=== PATIENT | male | born 1975 | race Caucasian/White ===

== ENCOUNTER 2016-09-24 05:16 | Emergency (ER) | payer OTHER ==
--- NOTE | 2016-09-24 05:50 | DIAGNOSTIC IMAGING REPORT ---
PROCEDURE: XR ABDOMEN 1 VIEW UPRIGHT INDICATION: ABDOMINAL PAIN TECHNIQUE: AP upright view. COMPARISON: None. FINDINGS: There is moderate fluid distention of the stomach with relative paucity of small bowel gas. No evidence of free air. tissues Soft tissues and osseous structures are normal. IMPRESSION: 1. Moderate fluid distention of the stomach with relative paucity of small bowel gas (suggests fluid in the small bowel). While this may be normal, gastroenteritis or occult small bowel obstruction.
--- NOTE | 2016-09-24 08:02 | DIAGNOSTIC IMAGING REPORT ---
PROCEDURE: CT ABD/PELVIS WITH CONTRAST INDICATION: ABDOMINAL PAIN TECHNIQUE: 125 ml of Isovue 300 were injected intravenously and axial images were obtained of the entire abdomen and pelvis with sagittal and coronal reformations. COMPARISON: Comparison made abdominal radiograph earlier in the day. FINDINGS: ABDOMEN: There is a 2.9 cm low density area in the right lobe of the liver with a 1.2 cm low density area in the left lobe of the liver. Liver is otherwise normal. Bowel pattern is within normal limits and there is no evidence of obstruction. Appendix is normal. Mild distention of the stomach. Gallbladder, spleen, pancreas, kidneys, and aorta are normal. PELVIS: Pelvic structures are normal. No evidence of free fluid. IMPRESSION: 1. There are low density areas in the liver (right lobe 2.9 cm, left lobe 1.2 cm) which may represent cysts or hemangiomas. Ultrasound is recommended to further evaluate. 2. Otherwise negative CT abdomen and pelvis. 3. Findings discussed with Dr. Sanjay Limon. All CT scans at this facility use dose modulation, iterative reconstruction, and/or weight-based dosing when appropriate to reduce radiation dose to as low as reasonably achievable.
--- NOTE | 2016-09-24 08:06 | ED ORDER SUMMARY ---
..... Patient: YISEL GARCÍA OrderSheet [facility] VisitID: [id number] [address] [place] [place] [address] 41y, M Registration Date/Time: 09/24/2016 ORDER SHEET Weight: 74.8 kg Allergies: Codeine, Oxycodone GENERAL ORDERS: CBC w Diff Urgent (05:35 09/24/2016 Jamar WILLSON) (Ack 5:38 AMcQuoid ER Tech1) (5:44 TBowen R.N.) CMP Urgent (05:35 09/24/2016 Jamar WILLSON) (Ack 5:38 AMcQuoid ER Tech1) (5:44 TBowen R.N.) Amylase Urgent (05:09/24/2016 Jamar WILLSON) (Ack 5:38 AMcQuoid ER Tech1) (5:44 TBowen R.N.) Abdomen 1V Upright Urgent (05:09/24/2016 Jamar WILLSON) (Ack 5:38 AMcQuoid ER Tech1) (5:45 RFay) UA-Culture if indicated Urgent (06:49 09/24/2016 Jamar WILLSON) (6:50 TBowen R.N.) Urine Drug Screen Urgent (06:49 09/24/2016 Jamar WILLSON) (6:50 TBowen R.N.) CT Abd/Pel w Cont (No) (N/A) Urgent (06:53 09/24/2016 Jamar WILLSON) (Ack 6:57 AMcQuoid ER Tech1) (7:31 TBergley) MEDICATION ORDERS: IV FLUIDS: IV NS : initial bolus 500 mL (1000 mL/hr), then 250 mL/hr for 3h (NOW); Urgent (05:35 09/24/2016 Jamar WILLSON) (5:45 TBowen R.N.) Zofran IV 4 mg (NOW) (05:35 09/24/2016 Jamar WILLSON) (5:44 TBowen R.N.) Demerol IV 12.5 mg (NOW) (06:53 09/24/2016 Jamar WILLSON) (Ack 6:55 RMarsden R.N.) (7:15 Richy R.Juan) ORDER SHEET NOTES: [Electronically signed by Macey Pearl R.N. (13:28 09/24/2016)] [Electronically signed by Sanjay Limon MD (22:41 09/27/2016)] [Electronically locked/signed by Macey Pearl R.N. (13:28 09/24/2016)]
--- NOTE | 2016-09-24 08:06 | ED NURSING NOTES ---
Clinical Report - Nurses [facility] [address] [place] [address] 09/24/2016 5:19 Patient: YISEL GARCÍA TRIAGE Triage time 05:27. Acuity: LEVEL 3. Chief Complaint: ABDOMINAL PAIN, NAUSEA, VOMITING and DIARRHEA. --05:30 TonyaB, R.N. 05:27 09/24/16. BP: 138/90. HR: 68. RR: 16. O2 saturation: 99%. Temp: 98.4 F. Pain level now: 12/14. --05:30 TonyaB, R.N. Weight: 74.8 kg. Height/Length: 68 inches. BMI: 25.1. --05:28 TonyaB, R.N. Medications None. --05:28 TonyaB, R.N. Allergies Codeine. --05:28 TonyaB, R.N. Oxycodone. --05:28 TonyaB, R.N. History Arrived by private vehicle. Historian: patient. This started yesterday. ( pt complains of pain this am). 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 PAST MEDICAL HX: Immunizations: up-to-date. SOCIAL HX: Light tobacco smoker- less than 1/2 a pack per day. Regular alcohol use; consumes beer daily. History of drug use: marijuana. Recently used drugs yesterday. No recent travel. No infectious disease exposure. No known contact with a sick individual. SELF HARM ASSESSMENT: A self harm assessment was performed. The patient answered "no" to the question "Have you recently felt down, depressed, or hopeless?", "Have you noticed less interest or pleasure in doing things?", "Do you have thoughts of harming or killing yourself?", "Are you here because you tried to hurt yourself?", "Have you ever tried to hurt yourself before today?", "Have you recently had thoughts about harming or killing others?" and "Do you have any dangerous items in your possession?". FALL RISK ASSESSMENT: Fall risk assessment completed. No fall risk identified. NUTRITIONAL RISK ASSESSMENT: The nutritional risk assessment revealed no deficiencies. FUNCTIONAL ASSESSMENT: Functional assessment: no impairments noted. LEARNING NEEDS ASSESSMENT: The learning needs assessment revealed no barriers. ABUSE ASSESSMENT: Abuse assessment: The patient was asked "Do you feel safe in your home?". SKIN INTEGRITY ASSESSMENT: Skin integrity risk assessment completed. No skin integrity risk identified. --05:30 Sandra Dnucan PROBLEMS: no known problems. ADDITIONAL SURGERIES: no known surgeries. Interventions ID band on patient. To treatment room. --05:30 Sandra Duncan PHYSICAL ASSESSMENT Ambulatory to room. GENERAL / NEURO / PSYCH: Alert. Oriented X 4. Appears in no acute distress. HEENT: Mucous membranes are pink. RESPIRATORY: Respirations not labored. Breath sounds within normal limits. CVS: Normal sinus rhythm noted. Capillary refill less than 2 seconds. GI / : Abdomen soft and nontender. Bowel sounds within normal limits. SKIN: Skin is warm and dry. --05:31 Sandra Duncan NURSING PROGRESS NOTES Patient gowned. Patient identifiers checked. Call light placed in reach. Side rails up x 1. Bed placed in lowest position. Brakes of bed on. --05:31 Sandra Duncan 05:44 09/24/2016 Site #1 started via IV in the left forearm with an 20g angiocath, with aseptic technique and good blood return; one attempt. --05:44 Sandra Duncan 05:44 09/24/2016 Zofran (Ondansetron HCl) IVP 4 mg given over 1 minute(s) via site #1. Allergies verified and confirmed 5 rights. IV patency established. IV site checked: no pain, redness, or swelling. IV flushed thoroughly pre- and post-medication administration. IVP given by RN. --05:44 Sandra Duncan 05:45 09/24/2016 Started bag #1 1000 mL IV Fluids IV NS (Saline); at 1000 mL/hr over 30 minute(s) via site #1. Allergies verified and confirmed 5 rights. IV patency established. IV site checked: no pain, redness, or swelling. IV flushed thoroughly pre- and post-medication administration. --05:45 Sandra Duncan Patient ID band checked for patient name and birthdate: patient confirmed. Blood samples drawn from the right antecubital space with Vacutainer and 18g butterfly by nurse ; labeled in presence of the patient and sent to lab: elton miller. --05:45 Sandra Duncan Reassessment after medication administered. He is sleeping. --06:23 Sandra Duncan Care transferred and report received (from MINERVA Lao). --07:09 Grace Kruger R.N. 07:15 09/24/2016 Demerol (Meperidine HCl) IVP 12.5 mg given over 5 minute(s) via site #1. Allergies verified and confirmed 5 rights. IV patency established. IV site checked: no pain, redness, or swelling. IV flushed thoroughly pre- and post-medication administration. IVP given by RN. --07:15 Peyton Welch R.N. DISPOSITION / DISCHARGE 08:25 09/24/16. BP: 137/85. HR: 61. RR: 12. O2 saturation: 100% on room air. Temp: 98.2 F (oral). Pain level now: 09/13. --08:26 Macey Pearl R.N. Departure time: 08:Sep 24 2016. Condition at departure: improved and stable. No learning barriers present. Discharge instructions provided and reviewed with the patient. Reviewed medication(s) side effects, precautions and dosing information. Prescription(s) given to the patient. Patient verbalized understanding. Written instructions provided in [place]. The patient was discharged by the physician. He was discharged home and accompanied by train inspector. He left the Emergency Department ambulatory and via private vehicle. E Commerce Director driving. --08:26 Macey Pearl R.N. 08:05 09/24/2016 IV Fluids IV NS Discontinued: bag #1 infused upon discharge. Total amount infused: 1000 mL. IV patency established. IV site checked: no pain, redness, or swelling. IV flushed thoroughly. --13:28 Macey Pearl R.N. 08:26 09/24/2016 Site #1 removed upon discharge. Catheter intact. Manual pressure and bandage applied. --08:26 Macey Pearl R.N. Locked/Released at 09/24/2016 13:28 by Macey Pearl R.N.
--- NOTE | 2016-09-24 08:06 | ED CLINICAL REPORT ---
Clinical Report - Physicians/Mid Levels [facility] [address] [place] [address] 09/24/2016 5:19 Patient: YISEL GARCÍA Time Seen: 05:Sep 24 2016. Arrived- By private vehicle. Historian- patient. HISTORY OF PRESENT ILLNESS Chief Complaint: ABDOMINAL PAIN and VOMITING, DIARRHEA and NAUSEA. At its maximum, severity described as moderate. When seen in the E.D., severity described as moderate. Modifying factors- worsened by food. Not relieved by anything. It is described as located in the upper abdomen. This started yesterday Mostly nausea and small amounts of diarrhea every 2 hours. Came on after eating ham last night. and is still present. The patient has had nausea and loss of appetite. No vomiting. He has had moderate diarrhea (12 times per day.Small amounts.). This has occurred several times. It has been watery and contained mucous and has been associated with cramps. Similar symptoms previously: None. Recent medical care: Not recently seen/assessed. REVIEW OF SYSTEMS No constipation, black stools, hematemesis, difficulty with urination or pain with urination. No urinary frequency, fever, sore throat, chest pain or difficulty breathing. No cough, joint pain, skin rash, chills or back pain. All systems otherwise negative, except as recorded above. PAST HISTORY See nurses notes. Problems: no known problems. Additional Surgeries: no known surgeries. Medications: None. Allergies: Codeine. Oxycodone. SOCIAL HISTORY Light tobacco smoker (cigarette)- less than 1/2 a pack per day. Occasional alcohol use. History of drug use: marijuana. ADDITIONAL NOTES The nursing notes have been reviewed. PHYSICAL EXAM Vital Signs: 09/24/2016 05:27 BP: 138/90. HR: 68. RR: 16. O2 saturation: 99%. Temp: 98.4 F. Pain level now: 8/10. Appearance: Alert. Eyes: Eyes normal inspection. ENT: Pharynx normal. Neck: Normal inspection. CVS: Normal heart rate and rhythm. Heart sounds normal. Pulses normal. Respiratory: No respiratory distress. Breath sounds normal. Chest nontender. Abdomen: Soft and nontender. Back: Normal inspection. Skin: Skin warm. Normal skin color. No rash. Extremities: Extremities exhibit normal ROM. No lower extremity edema. Neuro: Oriented X 3. No motor deficit. No sensory deficit. LABS, X-RAYS, AND EKG Abdominal CT: no luminal diameter. Consistent with gastroenteritis. Abdominal CT performed with IV contrast. The study was independently viewed by me, interpreted by the radiologist and discussed with the radiologist. Laboratory Tests: UA-Culture if indicated: (YRIS: 09/24/2016 06:45) ( PagRcvd 09/24/2016 07:16) Final results Test Result Flag Units (Reference) URINE COLOR YELLOW URINE APPEARANCE SL CLOUDY URINE GLUCOSE NEGATIVE (NEGATIVE) URINE BILIRUBIN NEGATIVE (NEGATIVE) URINE KETONE 2+ (NEGATIVE) URINE SPECIFIC GRAVITY >= 1.030 (1.010-1.030) URINE PH 6.0 (5.0-8.0) URINE PROTEIN TRACE (NEGATIVE) URINE UROBILINOGEN 0.2 EU/dL (0.2-1.0) URINE NITRITE NEGATIVE (NEGATIVE) URINE BLOOD NEGATIVE (NEGATIVE) URINE LEUK ESTERASE NEGATIVE (NEGATIVE) URINE RBC 0-1 rbc/hpf (0-1) URINE WBC NONE SEEN wbc/hpf (0-1) URINE EPITHELIAL CELLS 0-1 EPI/hpf (0-5) URINE BACTERIA NONE SEEN (NONE SEEN) URINE COMMENT CULT NOT INDICATED URINE CULTURES ARE SET-UP BASED ON THE FOLLOWING CRITERIA:POSITIVE NITRITEPOSITIVE LEUKOCYTE ESTERASEGREATER THAN 10 WHITE BLOOD CELLSMODERATE (2+) OR GREATER BACTERIA CBC w Diff: (YRIS: 09/24/2016 05:40) ( Mscvd 09/24/2016 05:51) Final results Test Result Flag Units (Reference) WHITE BLOOD COUNT 9.4 K/uL (4.5-11.5) RED BLOOD COUNT 4.86 M/uL (4.50-5.90) HEMOGLOBIN 14.9 gm/dL (13.5-17.5) HEMATOCRIT 44.4 % (41.0-53.0) MEAN CELL VOLUME 91 fL (80-100) MEAN CORPUSCULAR HGB 31 pg (26-34) MEAN CORPUSCULAR HGB CONC 34 g/dL (31-37) RED CELL DISTRIBUTION WIDTH 13.6 % (11.6-14.8) PLATELET COUNT 137 L K/uL (150-400) NEUTROPHIL % 75.4 H % (50-75) LYMPH % 17.8 L % (25-40) MONO % 5.3 % (3-14) EOSINOPHIL % 1.2 % (0-4) BASOPHIL % 0.3 % (0-2) Urine Drug Screen: (YRIS: 09/24/2016 06:45) ( MsgRcvd 09/24/2016 07:18) Final results Test Result Flag Units (Reference) AMPHETAMINE/METHAMPHETAMINE NEGATIVE (NEGATIVE) BARBITURATE NEGATIVE (NEGATIVE) BENZODIAZEPINE NEGATIVE (NEGATIVE) CANNABINOID POSITIVE H (NEGATIVE) COCAINE NEGATIVE (NEGATIVE) ECSTASY NEGATIVE (NEGATIVE) METHADONE NEGATIVE (NEGATIVE) OPIATE NEGATIVE (NEGATIVE) The urine drug screen is a qualitative screening test fordrug overdose and abuse. All screen results should beconsidered as presumptive.Drugs screened for are as follows:BenzodiazepinesCocaineAmphetamines/MetamphetaminesTHC (Tetrahydrocannabinol)OpiatesBarbituratesEcstasyMethadonePositive results are unconfirmed. For confirmation, notifythe lab for the specimen to be sent to the reference lab.All confirmations must be performed by a differentmethodology.The ingestion of natural herbal and plant productscontaining Ephedra/Ephedra metabolites can produce in urineone or more substances capable of cross reacting withamphetamine/methamphetamine immunoassays. These testsprovide a preliminary result only. A more specificalternative chemical method must be used to obtain aconfirmed analytical result. CMP: (YRIS: 09/24/2016 05:40) ( MsgRcvd 09/24/2016 06:01) Final results Test Result Flag Units (Reference) GLUCOSE 127 H mg/dL (70-110) BUN 15 mg/dL (7-18) CREATININE 0.9 mg/dL (0.6-1.3) Estimated GFR >60 mL/min Estimated GFR- >60 mL/min Note: Persistent reduction over 3 months in eGFR<60 mL/min/1.73 m2 defines CKD. Patients with eGFR values>=60 mL/min/1.73 m2 may also have CKD if evidence ofpersistent proteinuria. Additional information may be foundat www.kidney.org. SODIUM 135 L mmol/L (136-145) POTASSIUM 4.2 mmol/L (3.5-5.1) CHLORIDE 100 mmol/L (98-107) CARBON DIOXIDE 27 mmol/L (21-32) CALCIUM 8.5 mg/dL (8.5-10.1) TOTAL PROTEIN 7.0 g/dL (6.4-8.2) ALBUMIN 3.8 g/dL (3.3-5.0) BILIRUBIN, TOTAL 0.7 mg/dL (0.0-1.0) ALKALINE PHOSPHATASE 70 U/L (46-116) AST (SGOT) 18 U/L (15-37) ALT (SGPT) 37 U/L (12-78) AMYLASE 48 U/L (25-115) . PROGRESS AND PROCEDURES Course of Care: IV NS Demerol 12.5 mg Iv Zofran 4 mg IV Patient is stable. Symptoms better. Patient/family counseled. Disposition: Discharged. Condition: stable. CLINICAL IMPRESSION Acute periumbilical abdominal pain of unknown cause. INSTRUCTIONS Take clear liquids only (frequent sips) for the next 12 hours until better. Advance diet as tolerated. Warnings: Further evaluation is necessary. SEDATIVE MEDICATION: You were given sedative medication during your visit. Do not drive or operate dangerous machinery. GENERAL WARNINGS: Return or contact your physician immediately if your condition worsens or changes unexpectedly, if not improving as expected, or if other problems arise. Prescription Medications: Zofran (orally disintegrating tablets) 4 mg: take 1 orally every 6 hours as needed for nausea. Dispense ten (10). No refill. Substitution is permissible. Ultram 50 mg: take 1-2 orally every 6 hours as needed for pain. Dispense fifteen (15). No refills. Follow-up: Follow up with your doctor in two days if not better. Understanding of the discharge instructions verbalized by patient. (Electronically signed by Sanjay Limon MD 09/27/2016 22:41)
--- NOTE | 2016-09-24 08:06 | ED ORDER SUMMARY ---
..... Patient: YISEL GARCÍA OrderSheet [facility] VisitID: [id number] [address] [place] [address] 41y, M Registration Date/Time: 09/24/2016 ORDER SHEET Weight: 74.8 kg Allergies: Codeine, Oxycodone GENERAL ORDERS: CBC w Diff Urgent (05:35 09/24/2016 Jamar WILLSON) (Ack 5:38 AMcQuoid ER Tech1) (5:44 TBowen R.N.) CMP Urgent (05:35 09/24/2016 Jamar WILLSON) (Ack 5:38 AMcQuoid ER Tech1) (5:44 TBowen R.N.) Amylase Urgent (05:09/24/2016 Jamar WILLSON) (Ack 5:38 AMcQuoid ER Tech1) (5:44 TBowen R.N.) Abdomen 1V Upright Urgent (05:09/24/2016 Jamar WILLSON) (Ack 5:38 AMcQuoid ER Tech1) (5:45 RFay) UA-Culture if indicated Urgent (06:49 09/24/2016 Jamar WILLSON) (6:50 TBowen R.N.) Urine Drug Screen Urgent (06:49 09/24/2016 Jamar WILLSON) (6:50 TBowen R.N.) CT Abd/Pel w Cont (No) (N/A) Urgent (06:53 09/24/2016 Jamar WILLSON) (Ack 6:57 AMcQuoid ER Tech1) (7:31 TBergley) MEDICATION ORDERS: IV FLUIDS: IV NS : initial bolus 500 mL (1000 mL/hr), then 250 mL/hr for 3h (NOW); Urgent (05:35 09/24/2016 Jamar WILLSON) (5:45 TBowen R.N.) Zofran IV 4 mg (NOW) (05:35 09/24/2016 Jamar WILLSON) (5:44 TBowen R.N.) Demerol IV 12.5 mg (NOW) (06:53 09/24/2016 Jamar WILLSON) (Ack 6:55 RMarsden R.N.) (7:15 Richy R.Juan) ORDER SHEET NOTES: [Electronically signed by Macey Pearl R.N. (13:28 09/24/2016)] [Electronically signed by Sanjay Limon MD (22:41 09/27/2016)] [Electronically locked/signed by Macey Pearl R.N. (13:28 09/24/2016)]
--- NOTE | 2016-09-24 08:06 | ED NURSING NOTES ---
Clinical Report - Nurses [facility] [address] [place] [address] 09/24/2016 5:19 Patient: YISEL GARCÍA TRIAGE Triage time 05:27. Acuity: LEVEL 3. Chief Complaint: ABDOMINAL PAIN, NAUSEA, VOMITING and DIARRHEA. --05:30 TonyaB, R.N. 05:27 09/24/16. BP: 138/90. HR: 68. RR: 16. O2 saturation: 99%. Temp: 98.4 F. Pain level now: 12/14. --05:30 TonyaB, R.N. Weight: 74.8 kg. Height/Length: 68 inches. BMI: 25.1. --05:28 TonyaB, R.N. Medications None. --05:28 TonyaB, R.N. Allergies Codeine. --05:28 TonyaB, R.N. Oxycodone. --05:28 TonyaB, R.N. History Arrived by private vehicle. Historian: patient. This started yesterday. ( pt complains of pain this am). 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 PAST MEDICAL HX: Immunizations: up-to-date. SOCIAL HX: Light tobacco smoker- less than 1/2 a pack per day. Regular alcohol use; consumes beer daily. History of drug use: marijuana. Recently used drugs yesterday. No recent travel. No infectious disease exposure. No known contact with a sick individual. SELF HARM ASSESSMENT: A self harm assessment was performed. The patient answered "no" to the question "Have you recently felt down, depressed, or hopeless?", "Have you noticed less interest or pleasure in doing things?", "Do you have thoughts of harming or killing yourself?", "Are you here because you tried to hurt yourself?", "Have you ever tried to hurt yourself before today?", "Have you recently had thoughts about harming or killing others?" and "Do you have any dangerous items in your possession?". FALL RISK ASSESSMENT: Fall risk assessment completed. No fall risk identified. NUTRITIONAL RISK ASSESSMENT: The nutritional risk assessment revealed no deficiencies. FUNCTIONAL ASSESSMENT: Functional assessment: no impairments noted. LEARNING NEEDS ASSESSMENT: The learning needs assessment revealed no barriers. ABUSE ASSESSMENT: Abuse assessment: The patient was asked "Do you feel safe in your home?". SKIN INTEGRITY ASSESSMENT: Skin integrity risk assessment completed. No skin integrity risk identified. --05:30 Sandra Duncan PROBLEMS: no known problems. ADDITIONAL SURGERIES: no known surgeries. Interventions ID band on patient. To treatment room. --05:30 Sandra Duncan PHYSICAL ASSESSMENT Ambulatory to room. GENERAL / NEURO / PSYCH: Alert. Oriented X 4. Appears in no acute distress. HEENT: Mucous membranes are pink. RESPIRATORY: Respirations not labored. Breath sounds within normal limits. CVS: Normal sinus rhythm noted. Capillary refill less than 2 seconds. GI / : Abdomen soft and nontender. Bowel sounds within normal limits. SKIN: Skin is warm and dry. --05:31 Sandra Duncan NURSING PROGRESS NOTES Patient gowned. Patient identifiers checked. Call light placed in reach. Side rails up x 1. Bed placed in lowest position. Brakes of bed on. --05:31 Sandra Duncan 05:44 09/24/2016 Site #1 started via IV in the left forearm with an 20g angiocath, with aseptic technique and good blood return; one attempt. --05:44 Sandra Duncan 05:44 09/24/2016 Zofran (Ondansetron HCl) IVP 4 mg given over 1 minute(s) via site #1. Allergies verified and confirmed 5 rights. IV patency established. IV site checked: no pain, redness, or swelling. IV flushed thoroughly pre- and post-medication administration. IVP given by RN. --05:44 Sandra Duncan 05:45 09/24/2016 Started bag #1 1000 mL IV Fluids IV NS (Saline); at 1000 mL/hr over 30 minute(s) via site #1. Allergies verified and confirmed 5 rights. IV patency established. IV site checked: no pain, redness, or swelling. IV flushed thoroughly pre- and post-medication administration. --05:45 Sandra Duncan Patient ID band checked for patient name and birthdate: patient confirmed. Blood samples drawn from the right antecubital space with Vacutainer and 18g butterfly by nurse ; labeled in presence of the patient and sent to lab: elton miller. --05:45 Sandra Duncan Reassessment after medication administered. He is sleeping. --06:23 Sandra Duncan Care transferred and report received (from MINERVA Lao). --07:09 Grace Kruger R.N. 07:15 09/24/2016 Demerol (Meperidine HCl) IVP 12.5 mg given over 5 minute(s) via site #1. Allergies verified and confirmed 5 rights. IV patency established. IV site checked: no pain, redness, or swelling. IV flushed thoroughly pre- and post-medication administration. IVP given by RN. --07:15 Peyton Welch R.N. DISPOSITION / DISCHARGE 08:25 09/24/16. BP: 137/85. HR: 61. RR: 12. O2 saturation: 100% on room air. Temp: 98.2 F (oral). Pain level now: 09/13. --08:26 Macey Pearl R.N. Departure time: 08:Sep 24 2016. Condition at departure: improved and stable. No learning barriers present. Discharge instructions provided and reviewed with the patient. Reviewed medication(s) side effects, precautions and dosing information. Prescription(s) given to the patient. Patient verbalized understanding. Written instructions provided in [place]. The patient was discharged by the physician. He was discharged home and accompanied by solid waste facility operator. He left the Emergency Department ambulatory and via private vehicle. Experimental Machining Lab Manager driving. --08:26 Macey Pearl R.N. 08:05 09/24/2016 IV Fluids IV NS Discontinued: bag #1 infused upon discharge. Total amount infused: 1000 mL. IV patency established. IV site checked: no pain, redness, or swelling. IV flushed thoroughly. --13:28 Macey Pearl R.N. 08:26 09/24/2016 Site #1 removed upon discharge. Catheter intact. Manual pressure and bandage applied. --08:26 Macey Pearl R.N. Locked/Released at 09/24/2016 13:28 by Macey Pearl R.N.
--- NOTE | 2016-09-27 22:41 | ED MAR SUMMARY ---
..... Medication Administration Record [facility] [address] [place] [address] Patient: YISEL GARCÍA Visit ID: [id number] 41y, M Weight: 74.8 kg Height/Length: 68 in BMI: 25.1 ALLERGIES: Oxycodone, Codeine Given 05:44 09/24/2016 Dakota RJavan Medication Administered: ZOFRAN [IVP] (ONDANSETRON HCL), Dose: 4 mg IVP over 1 minute(s), Site: #1 left forearm. Medication Ordered: Zofran IV 4 mg (NOW). Start 05:45 09/24/2016 Dakota RJavan, Stop 08:05 09/24/2016 Macey Pearl R.N. Medication Administered: IV NS (SALINE), Dose: IV Fluids over 30 minute(s), Rate: 1000 mL/hr, Dispensed: 1000 mL bag, Site: #1 left forearm. Medication Ordered: IV NS : initial bolus 500 mL (1000 mL/hr), then 250 mL/hr for 3h (NOW); Urgent. Given 07:15 09/24/2016 Peyton Welch RJavan Medication Administered: DEMEROL [IVP] (MEPERIDINE HCL), Dose: 12.5 mg IVP over 5 minute(s), Site: #1 left forearm. Medication Ordered: Demerol IV 12.5 mg (NOW).
--- NOTE | 2016-09-27 22:41 | ED MED RECONCILIATION SUMMARY ---
Patient: YISEL GARCÍA Medication Reconciliation Report [facility] VisitID: [id number] [address] [place] [address] 41y, M Registration Date/Time: 09/24/2016 Weight: 74.8 kg Height/Length: 68 in. BMI: 25.1 ALLERGIES: Codeine, Oxycodone The patient's Home Medications are listed below: NONE. The source(s) of the original Home Medication information: Not obtained. The following Medications were given to the patient in the Emergency Department: Zofran [IVP] IVP 4 mg, administered: 09/24/2016 5:44:00 AM IV NS IV Fluids bolus 0, then 1000 mL/hr, administered: 09/24/2016 5:45:00 AM Demerol [IVP] IVP 12.5 mg, administered: 09/24/2016 7:15:00 AM The following Medications were prescribed to the patient: Zofran (orally disintegrating tablets) 4 mg: take 1 orally every 6 hours as needed for nausea. Dispense ten (10). No refill. Substitution is permissible. -- Sanjay Limon MD Ultram 50 mg: take 1-2 orally every 6 hours as needed for pain. Dispense fifteen (15). No refills. -- Sanjay Limon MD
--- NOTE | 2016-09-27 22:41 | ED MAR SUMMARY ---
..... Medication Administration Record [facility] [address] [place] [address] Patient: YISEL GARCÍA Visit ID: [id number] 41y, M Weight: 74.8 kg Height/Length: 68 in BMI: 25.1 ALLERGIES: Oxycodone, Codeine Given 05:44 09/24/2016 Dakota RJavan Medication Administered: ZOFRAN [IVP] (ONDANSETRON HCL), Dose: 4 mg IVP over 1 minute(s), Site: #1 left forearm. Medication Ordered: Zofran IV 4 mg (NOW). Start 05:45 09/24/2016 Dakota RJavan, Stop 08:05 09/24/2016 Macey Pearl R.N. Medication Administered: IV NS (SALINE), Dose: IV Fluids over 30 minute(s), Rate: 1000 mL/hr, Dispensed: 1000 mL bag, Site: #1 left forearm. Medication Ordered: IV NS : initial bolus 500 mL (1000 mL/hr), then 250 mL/hr for 3h (NOW); Urgent. Given 07:15 09/24/2016 Peyton Welch RJavan Medication Administered: DEMEROL [IVP] (MEPERIDINE HCL), Dose: 12.5 mg IVP over 5 minute(s), Site: #1 left forearm. Medication Ordered: Demerol IV 12.5 mg (NOW).
--- NOTE | 2016-09-27 22:41 | ED MED RECONCILIATION SUMMARY ---
Patient: YISEL GARCÍA Medication Reconciliation Report [facility] VisitID: [id number] [address] [place] [address] 41y, M Registration Date/Time: 09/24/2016 Weight: 74.8 kg Height/Length: 68 in. BMI: 25.1 ALLERGIES: Codeine, Oxycodone The patient's Home Medications are listed below: NONE. The source(s) of the original Home Medication information: Not obtained. The following Medications were given to the patient in the Emergency Department: Zofran [IVP] IVP 4 mg, administered: 09/24/2016 5:44:00 AM IV NS IV Fluids bolus 0, then 1000 mL/hr, administered: 09/24/2016 5:45:00 AM Demerol [IVP] IVP 12.5 mg, administered: 09/24/2016 7:15:00 AM The following Medications were prescribed to the patient: Zofran (orally disintegrating tablets) 4 mg: take 1 orally every 6 hours as needed for nausea. Dispense ten (10). No refill. Substitution is permissible. -- Sanjay Limon MD Ultram 50 mg: take 1-2 orally every 6 hours as needed for pain. Dispense fifteen (15). No refills. -- Sanjay Limon MD
--- NOTE | 2016-09-27 22:41 | ED DISCHARGE INSTRUCTIONS ---
Patient: YISEL GARCÍA General Instructions [facility] VisitID: [id number] [place] [address] 41y, M Registration Date/Time: 09/24/2016 Acute periumbilical abdominal pain of unknown cause. INSTRUCTIONS Take clear liquids only (frequent sips) for the next 12 hours until better. Advance diet as tolerated. Warnings: Further evaluation is necessary. SEDATIVE MEDICATION: You were given sedative medication during your visit. Do not drive or operate dangerous machinery. GENERAL WARNINGS: Return or contact your physician immediately if your condition worsens or changes unexpectedly, if not improving as expected, or if other problems arise. Prescription Medications: Zofran (orally disintegrating tablets) 4 mg: take 1 orally every 6 hours as needed for nausea. Dispense ten (10). No refill. Substitution is permissible. Ultram 50 mg: take 1-2 orally every 6 hours as needed for pain. Dispense fifteen (15). No refills. Follow-up: Follow up with your doctor in two days if not better. Understanding of the discharge instructions verbalized by patient. ADDITIONAL INFORMATION Abdominal Pain,Uncertain Cause [Male] Based on your visit today, the exact cause of your abdominalpain is not clear. Your exam and tests do not indicate a dangerous cause at this time. However, the signs of a serious problem may take more time to appear. Although your evaluation was reassuring today, sometimes early in the course of many conditions, exam and lab tests can appear normal. Therefore, it is important for you to watch for any new symptoms or worsening of your condition. Causes It may not be obvious what caused your symptoms. Pay attention to things that do seem to make your symptoms worse or better and discuss this with your doctor when you follow up. Diagnosis The evaluation of abdominal pain in the emergency department may onlyrequire an exam by the doctor or it may include blood, urine or imaging studies, depending on many factors. Sometimes exams and tests can identify a cause but in many cases, a clear cause is not found. Further testing at follow up visits may help to suggest a clear diagnosis. Home Care Rest as much as possible until your next exam. Try to avoid any medications (unless otherwise directed by your doctor), foods, activities, or other factors that you may have contributed to your symptoms. Try to eat foods that you know that you have tolerated well in the past. Certain diets may be recommended for some conditions that cause abdominal pain. However, since the cause of your symptoms may not be clear, discuss your diet more with your primary care provider or specialist for further recommendations. Eating several small meals per day as opposed to 2 or 3 larger meals may help. Monitor closely for anything that may make your symptoms worse or better. Pay close attention to symptoms below that may indicate worsening of your condition. Follow Up and Precautions See your doctoras instructed or sooneror if your symptoms are not improving.In some cases, you may need more testing. When to Seek Medical Attention Contact your doctor or see medical attention ifany of the following occur: Pain is becoming worse You are unable to take your medications due to excessive vomiting Swelling of the abdomen Fever of 100.4F (38C) or higher, or as directed by your health care provider Blood in vomit or bowel movements (dark red or black color) Jaundice (yellow color of eyes and skin) New onset of weakness, dizziness or fainting New onset of chest, arm, back, neck or jaw pain Clear Liquid Diet Clear liquids are any liquid that you can see through as well as those that are very easy to digest. This is used while the body is recovering from irritation or infection of the stomach or intestinal tract. It may also be used before special procedures or surgery. This diet is to be used no more than three days. You may include the following items. Adults Adults should drink a total of 23 quarts of liquid per day. It may be easier to drink small frequent servings rather than a few large ones. Liquids can include: Fruit juices.Strained orange juice or lemonade (no pulp), apple, grape and cranberry juice, clear fruit drinks, sports drinks Beverages.Sport drinks, sodas, mineral water (plain or flavored), tea, black coffee, liquid gelatin (add twice the recommended amount of water) Soups.Clear broth, consomm, bouillon Desserts.Plain gelatin, popsicles, fruit juice bars Children Over 2 years old The following liquids are acceptable for children over age 2: Fruit juices.Strained orange juice or lemonade (no pulp), apple, grape and cranberry juice, clear fruit drinks Beverages. Sports drinks, sodas, mineral water (plain or flavored), tea, liquid gelatin (add twice the recommended amount of water) Soups. Clear broth, consomm, bouillon Desserts. Plain gelatin, popsicles, fruit juice bars Children under 2 years old Oral rehydration fluids such are available at drug stores and most grocery stores without a prescription. Ondansetron Oral disintegrating tablet What is this medicine? ONDANSETRON (on NUSRAT se colette) is used to treat nausea and vomiting caused by chemotherapy. It is also used to prevent or treat nausea and vomiting after surgery. How should I use this medicine? These tablets are made to dissolve in the mouth. Do not try to push the tablet through the foil backing. With dry hands, peel away the foil backing and gently remove the tablet. Place the tablet in the mouth and allow it to dissolve, then swallow. While you may take these tablets with water, it is not necessary to do so. Talk to your cookie breaker regarding the use of this medicine in children. Special care may be needed. What side effects may I notice from receiving this medicine? Side effects that you should report to your doctor or health hospice spiritual care coordinator as soon as possible: allergic reactions like skin rash, itching or hives, swelling of the face, lips, or tongue breathing problems dizziness fast or irregular heartbeat feeling faint or lightheaded, falls fever and chills swelling of the hands and feet tightness in the chest Side effects that usually do not require medical attention (report to your doctor or health hospice spiritual care coordinator if they continue or are bothersome): constipation or diarrhea headache What may interact with this medicine? Do not take this medicine with any of the following medications: -apomorphine -cisapride -dofetilide -dronedarone -pimozide -thioridazine -ziprasidone This medicine may also interact with the following medications: -carbamazepine -phenytoin -rifampicin -tramadol -other medicines that prolong the QT interval (cause an abnormal heart rhythm) What if I miss a dose? If you miss a dose, take it as soon as you can. If it is almost time for your next dose, take only that dose. Do not take double or extra doses. Where should I keep my medicine? Keep out of the reach of children. Store between 2 and 30 degrees C (36 and 86 degrees F). Throw away any unused medicine after the expiration date. What should I tell my health care provider before I take this medicine? They need to know if you have any of these conditions: heart disease history of irregular heartbeat liver disease low levels of magnesium or potassium in the blood an unusual or allergic reaction to ondansetron, granisetron, other medicines, foods, dyes, or preservatives or trying to get breast-feeding What should I watch for while using this medicine? Check with your doctor or health hospice spiritual care coordinator as soon as you can if you have any sign of an allergic reaction. Tramadol Hydrochloride Oral tablet What is this medicine? TRAMADOL (TRA ma dole) is a pain reliever. It is used to treat moderate to severe pain in adults. How should I use this medicine? Take this medicine by mouth with a full glass of water. Follow the directions on the prescription label. If the medicine upsets your stomach, take it with food or milk. Do not take more medicine than you are told to take. Talk to your cookie breaker regarding the use of this medicine in children. Special care may be needed. What side effects may I notice from receiving this medicine? Side effects that you should report to your doctor or health hospice spiritual care coordinator as soon as possible: allergic reactions like skin rash, itching or hives, swelling of the face, lips, or tongue breathing difficulties, wheezing confusion itching light headedness or fainting spells redness, blistering, peeling or loosening of the skin, including inside the mouth seizures Side effects that usually do not require medical attention (report to your doctor or health hospice spiritual care coordinator if they continue or are bothersome): constipation dizziness drowsiness headache nausea, vomiting What may interact with this medicine? Do not take this medicine with any of the following medications: MAOIs like Carbex, Eldepryl, Marplan, Nardil, and Parnate This medicine may also interact with the following medications: alcohol or medicines that contain alcohol antihistamines benzodiazepines bupropion carbamazepine or oxcarbazepine clozapine cyclobenzaprine digoxin furazolidone linezolid medicines for depression, anxiety, or psychotic disturbances medicines for migraine headache like almotriptan, eletriptan, frovatriptan, naratriptan, rizatriptan, sumatriptan, zolmitriptan medicines for pain like pentazocine, buprenorphine, butorphanol, meperidine, nalbuphine, and propoxyphene medicines for sleep muscle relaxants naltrexone phenobarbital phenothiazines like perphenazine, thioridazine, chlorpromazine, mesoridazine, fluphenazine, prochlorperazine, promazine, and trifluoperazine procarbazine warfarin What if I miss a dose? If you miss a dose, take it as soon as you can. If it is almost time for your next dose, take only that dose. Do not take double or extra doses. Where should I keep my medicine? Keep out of the reach of children. Store at room temperature between 15 and 30 degrees C (59 and 86 degrees F). Keep container tightly closed. Throw away any unused medicine after the expiration date. What should I tell my health care provider before I take this medicine? They need to know if you have any of these conditions: brain tumor depression drug abuse or addiction head injury if you frequently drink alcohol containing drinks kidney disease or trouble passing urine liver disease lung disease, asthma, or breathing problems seizures or epilepsy suicidal thoughts, plans, or attempt; a previous suicide attempt by you or a family member an unusual or allergic reaction to tramadol, codeine, other medicines, foods, dyes, or preservatives or trying to get breast-feeding What should I watch for while using this medicine? Tell your doctor or health hospice spiritual care coordinator if your pain does not go away, if it gets worse, or if you have new or a different type of pain. You may develop tolerance to the medicine. Tolerance means that you will need a higher dose of the medicine for pain relief. Tolerance is normal and is expected if you take this medicine for a long time. Do not suddenly stop taking your medicine because you may develop a severe reaction. Your body becomes used to the medicine. This does NOT mean you are addicted. Addiction is a behavior related to getting and using a drug for a non-medical reason. If you have pain, you have a medical reason to take pain medicine. Your doctor will tell you how much medicine to take. If your doctor wants you to stop the medicine, the dose will be slowly lowered over time to avoid any side effects. You may get drowsy or dizzy. Do not drive, use machinery, or do anything that needs mental alertness until you know how this medicine affects you. Do not stand or sit up quickly, especially if you are an older patient. This reduces the risk of dizzy or fainting spells. Alcohol can increase or decrease the effects of this medicine. Avoid alcoholic drinks. You may have constipation. Try to have a bowel movement at least every 2 to 3 days. If you do not have a bowel movement for 3 days, call your doctor or health hospice spiritual care coordinator. Your mouth may get dry. Chewing sugarless gum or sucking hard candy, and drinking plenty of water may help. Contact your doctor if the problem does not go away or is severe. You have been given the following additional information: Abdominal Pain, Unknown Cause, (Male) Diet, Clear Liquid Ondansetron Oral disintegrating tablet Tramadol Hydrochloride Oral tablet (Electronically signed by Sanjay Limon MD 09/27/2016 22:41)
== END 2016-09-24 08:25 | disposition home or self-care (01) ==
LOC: ED SRH 05:16
DX: R10.33 Periumbilical pain (principal); Z88.5 Allergy status to narcotic agent; F17.210 Nicotine dependence, cigarettes, uncomplicated
CPT/HCPCS: 90004; 90100; 92530; 92760; 92761; 92762; 92763; 92764; 92765; 92766; 92767; 95059